=== PATIENT | female | born 1950 | race Caucasian/White ===

== ENCOUNTER → 2019-02-11 | Outpatient (CLI) | payer OTHER ==
[~2019-02-11] VITALS: Ht 157.5 cm; Wt 77.1 kg
[~2019-02-11] MED LIST: AMBIEN 10 MG TA10 MG PO; BIOTIN1000 MCG PO; CALCIUM500 MG PO; D3 DOTS2000 UNIT PO; MAGNESIUM250 M1 PO; PENNSAID112 GM TOP; PROBIOTIC1 EAC7 PO; SPIRONOLACTONE25 MG PO; SUPER THERAVIT1 EACH PO; TRAMADOL HCL50 MG PO
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
[2019-02-11 08:50] VITALS: BP 132/80
--- NOTE | 2019-02-11 09:11 | NUR ---
Pain Clinic Assessment: 1. History of Osteoarthritis: RIGHT KNEE History of Rheumatoid Arthritis: NONE 2. Height: 5 ft. 2 in. 157.5 cm. Weight: 170.0 lb. oz. 77.112 kg. Patient's BMI: 31.1 3. Vital Signs: BP: 132/80 Pulse: 70 Resp: 16 Temp: 02 Sat: 100 ECG Mon: 4. Pain Intensity: 6-AVG 5. Fall Risk: Dizziness: N Needs help standing or walking: N Fallen in the last 3 months: N Fall risk comments: 6. Patient on Blood Thinner: None 7. History of Hypertension: Y 8. Opioid Therapy greater than 6 weeks: Opiate Contract Signed: 9. Risk Assessment Tool Provided: LOW 10. Functional Assessment Tool: 11. Recreational Drug Use: Never Drug Type: Tobacco Use: Never Smoker Tobacco Type: Amount or Packs/day: How Many Years: Alcohol Use: Yes Frequency: Weekly Quant: 3
== END ==
LOC: PAIN 06:46
DX: M54.5 Low back pain (principal); M96.1 Postlaminectomy syndrome, not elsewhere classified

== ENCOUNTER → 2019-02-15 | Outpatient (CLI) | payer OTHER ==
[~2019-02-15] VITALS: Ht 157.5 cm; Wt 77.1 kg
--- NOTE | ~2019-02-15 | HPC ---
[address] [address] PAIN MANAGEMENT CONSULTATION Name: JUANPABLO FITCH Room #: REG [facility].#: [id number] Admission: 02/15/19 Attend Phys: Riley Schwartz MD Discharge: Date of : 50 Report #: [id number] THIS REPORT FOR: //name// CC: Heather Schwartz DATE OF SERVICE: 02/15/2019 PROCEDURE NOTE CHIEF COMPLAINT: Bilateral low back pain radiating into the L5-S1 distribution with radiculopathy. Post-laminectomy syndrome with fusion. The patient is here today for lumbar epidural injection using a midline approach. We discussed this at her initial consultation just 4 days ago. We have received authorization to go forward with injection. PROCEDURE: Epidural steroid injection L5-S1 under fluoroscopic guidance. DESCRIPTION OF PROCEDURE: After informed consent, she was taken to fluoroscopic suite, placed prone, skin prepped with ChloraPrep. Skin anesthetized over the L5-S1 epidural space. A 20-gauge Tuohy epidural needle was advanced in the epidural space just to the left of midline. A 1 mL of Omnipaque injected. There was some pain radiating into the buttocks during initial injection, but it was all on the left. I injected 0.25 mL of Omnipaque and an epidurogram was demonstrated with all medications spreading into the left lateral recess. I injected 2.5 mL of 0.5% lidocaine mixed with 40 mg triamcinolone. The needle was then withdrawn slightly and redirected to the right of midline through the same entry point. Good loss of resistance was obtained. A small amount of Omnipaque again elicited discomfort into the hip consistent with epidural spread. An epidurogram was seen with 0.25 mL of Omnipaque. I then injected additional 2.5 mL of 0.5% lidocaine mixed with 40 mg of triamcinolone. She tolerated the procedure well. There were no complications. She was taken to recovery room for observation and discharged. Pain score diminished by about 50% at her discharge. Followup visit planned in 1 month. By: [id number] Riley Schwartz MD /nt
[2019-02-15 08:30] VITALS: BP 125/79
== END | disposition home or self-care (01) ==
LOC: PAIN 04:35
DX: M54.16 Radiculopathy, lumbar region (principal); M96.1 Postlaminectomy syndrome, not elsewhere classified; G89.29 Other chronic pain; Z98.890 Other specified postprocedural states; Z79.899 Other long term (current) drug therapy; Z88.8 Allergy status to other drugs, medicaments and biological substances

== ENCOUNTER → 2019-07-12 | Outpatient (CLI) | payer OTHER ==
[~2019-07-12] VITALS: Ht 162.6 cm; Wt 82.1 kg
[2019-07-12 13:57] VITALS: BP 132/75
--- NOTE | 2019-07-12 14:13 | NUR ---
Pain Clinic Assessment: 1. History of Osteoarthritis: RIGHT KNEE History of Rheumatoid Arthritis: NONE 2. Height: 5 ft. 4 in. 162.6 cm. Weight: 181.0 lb. oz. 82.101 kg. Patient's BMI: 31.1 3. Vital Signs: BP: 132/75 Pulse: 78 Resp: 16 Temp: 02 Sat: 100 ECG Mon: 4. Pain Intensity: 3 5. Fall Risk: Dizziness: N Needs help standing or walking: N Fallen in the last 3 months: N Fall risk comments: 6. Patient on Blood Thinner: None 7. History of Hypertension: Y 8. Opioid Therapy greater than 6 weeks: N Opiate Contract Signed: 9. Risk Assessment Tool Provided: LOW 10. Functional Assessment Tool: 11. Recreational Drug Use: Never Drug Type: Tobacco Use: Never Smoker Tobacco Type: Amount or Packs/day: How Many Years: Alcohol Use: Yes Frequency: Weekly Quant: 3
--- NOTE | 2019-07-13 18:18 | HPC ---
[facility] [place] [address] PAIN MANAGEMENT CONSULTATION Name: JUANPABLO FITCH Room #: REG [facility].#: [id number] Admission: 07/12/19 Attend Phys: Riley Schwartz MD Discharge: Date of : 50 Report #: [id number] THIS REPORT FOR: cc: Heather Galloway MD,Heather Schwartz,Riley Patel MD ~ CC: Heather Schwartz DATE OF SERVICE: 07/12/2019 Followup visit for lumbar radiculopathy. The patient returns to pain clinic today for followup. She got about 6-7 weeks of pretty decent pain relief following her first epidural injection. Pain is now returning. She has had a previous lumbar fusion. She did well after her fusion up until recently, pain has been increasing in severity and seems to be worse on the left than the right. Pain is an aching pressure. Pain intensity is not high, but she is fairly stoic. She scores 2/10. Functional assessment score, however, is 46/70 suggesting a fair degree of uncontrolled pain affecting her day-to-day activities. PQRS REVIEW: Positive for osteoarthritis of the right knee. BMI is 31.1, blood pressure 132/75, heart rate 78, respirations 16, O2 sat 100, pain intensity 3/10. She is not a fall risk. No blood thinners. She is under treatment for hypertension. She denies use of regular opioids, but has some tramadol provided by primary care physician. She has completed an opioid risk tool and score is low. She denies use of tobacco, drinks alcohol socially on occasion in a social setting. IMPRESSION: Chronic intractable low back pain with radiculopathy, post-laminectomy fusion. Pain is on the left with radicular distribution. PROCEDURE: Left paramedian lumbar epidural steroid injection under fluoroscopic guidance. She was taken to fluoroscopic suite, placed prone, skin prepped with ChloraPrep. Skin anesthetized over L4-L5. A 20-gauge Tuohy epidural needle advanced in the epidural space under fluoroscopic guidance. There was no blood or CSF aspirated. A 1 mL of Omnipaque was injected. Good spread of dye observed along the left lateral recesses followed by 3 mL of 0.5% lidocaine mixed with 80 mg of triamcinolone. She tolerated the procedure well and was observed for 45 minutes and discharged. [address] [address] PAIN MANAGEMENT CONSULTATION Name: JUANPABLO FITCH Room #: REG [facility]#: [id number] Admission: 07/12/19 Attend Phys: Riley Schwartz MD Discharge: Date of : 50 Report #: [id number] Followup visit planned as needed. <ELECTRONICALLY SIGNED> By: Riley Schwartz MD 07/13/19 1818 [id number] [id number] Riley Schwartz MD /nt
== END | disposition home or self-care (01) ==
LOC: PAIN 06:57
DX: M54.16 Radiculopathy, lumbar region (principal); G89.29 Other chronic pain; M96.1 Postlaminectomy syndrome, not elsewhere classified; Z98.890 Other specified postprocedural states; Z79.899 Other long term (current) drug therapy; Z88.8 Allergy status to other drugs, medicaments and biological substances

== ENCOUNTER → 2019-11-04 | Outpatient (CLI) | payer OTHER ==
[~2019-11-04] VITALS: Ht 162.6 cm; Wt 80.8 kg
--- NOTE | ~2019-11-04 | HPC ---
[facility] [address] [address] PAIN MANAGEMENT CONSULTATION Name: JUANPABLO FITCH Room #: REG [facility] M.Roxie.#: [id number] Admission: 11/04/19 Attend Phys: Riley Schawrtz MD Discharge: Date of : 50 Report #: [id number] THIS REPORT FOR: cc: Heather Galloway MD, Melissa J. MD Morgan, Richard L. MD ~ CC: Heather Schwartz Followup visit for chronic low back pain with radiculopathy, post-laminectomy and fusion. The patient returns to the pain clinic today for repeat epidural injection. She has had 2 prior injections within the last 9 months, both providing relief measured in months. She has pain mostly below the level of her fusion that radiates into her hips and legs and is back again today. She has also pain that radiates above her scar. She probably has some movement as well in the vertebral level above her fusion. She would like another injection based upon her favorable response. She continues to try and remain active and does exercises. She has seen Dr. Travis, who suggested that she might need an extension of her fusion. This would extend the fusion I suspect down to S1, which would put a fair amount of pressure on the levels above. She is reluctant to proceed with surgery and is hopeful that we can control her pain with conservative measures. I reviewed her x-rays and she has a fusion of L3-L4 stabilizing spondylolisthesis at that level. PQRS: Positive for osteoarthritis, right knee, lumbar spondylosis ____ both wrists. Her BMI is 30.6. She tries to keep her weight down with diet and exercise. Blood pressure is 110/74, heart rate 72, respirations 16, O2 sat 100 with COVID mask on. Pain intensity today is a 7/10. She does not need help standing or walking and has not fallen. She denies use of blood thinners. Dr. Galloway provides her with medication to treat hypertension and she is currently well controlled. She denies any regular opioids. She has had taken tramadol in the past. She has completed an opioid risk tool and her score is 1-2. She denies use of tobacco, drinks alcohol socially on occasion. IMPRESSION: Chronic low back pain, post-laminectomy syndrome with radiculopathy. PROCEDURE: Epidural steroid injection L4-L5, right paramedian approach under fluoroscopic guidance. After informed consent, she was taken to fluoroscopic suite, placed prone, skin prepped with ChloraPrep. Skin anesthetized over L4-L5 to the right of midline. [address] [address] PAIN MANAGEMENT CONSULTATION Name: JUANPABLO FITCH Elaine Room #: REG [facility] Melonie.#: [id number] Admission: 11/04/19 Attend Phys: Riley Schwartz MD Discharge: Date of : 50 Report #: [id number] A 20-gauge Tuohy epidural needle advanced in the epidural space using loss of resistance technique. There was no blood, no CSF aspirated. A 1 mL of Omnipaque was injected. Good spread of dye observed into the epidural space followed by 3 mL of 0.5% lidocaine mixed with 80 mg of triamcinolone. She tolerated the procedure well and was observed for 45 minutes and discharged. Followup visit planned as needed. By: [id number] [id number] Riley Schwartz MD /nt
[2019-11-04 09:32] VITALS: BP 110/74
--- NOTE | 2019-11-04 09:53 | NUR ---
Pain Clinic Assessment: 1. History of Osteoarthritis: RIGHT KNEE BACK BOTH WRIST History of Rheumatoid Arthritis: N/A 2. Height: 5 ft. 4 in. 162.6 cm. Weight: 178.2 lb. oz. 80.831 kg. Patient's BMI: 30.6 3. Vital Signs: BP: 110/74 Pulse: 72 Resp: 16 Temp: 02 Sat: 100 ECG Mon: 4. Pain Intensity: 7 5. Fall Risk: Dizziness: N Needs help standing or walking: N Fallen in the last 3 months: N Fall risk comments: 6. Patient on Blood Thinner: None 7. History of Hypertension: Y 8. Opioid Therapy greater than 6 weeks: N Opiate Contract Signed: 9. Risk Assessment Tool Provided: LOW RISK 2/3 10. Functional Assessment Tool: 11. Recreational Drug Use: Never Drug Type: Tobacco Use: Never Smoker Tobacco Type: Amount or Packs/day: How Many Years: Alcohol Use: Yes Frequency: Weekly Quant: 1-2
== END ==
LOC: PAIN 06:52
PROVIDERS: ATTEND Anesthesiology Pain Medicine
DX: M54.5 Low back pain (principal); M96.1 Postlaminectomy syndrome, not elsewhere classified; G89.29 Other chronic pain; Z79.899 Other long term (current) drug therapy; Z98.890 Other specified postprocedural states

== ENCOUNTER → 2020-03-27 | Outpatient (CLI) | payer OTHER ==
[~2020-03-27] VITALS: Ht 162.6 cm; Wt 83.9 kg
[~2020-03-27] MED LIST changes: +CHROMIUM PICO400 MCG PO
[2020-03-27 12:31] VITALS: BP 121/70
--- NOTE | 2020-03-27 12:35 | NUR ---
Pain Clinic Assessment: 1. History of Osteoarthritis: RIGHT KNEE BACK BOTH WRIST History of Rheumatoid Arthritis: N/A 2. Height: 5 ft. 4 in. 162.6 cm. Weight: 185.0 lb. oz. 83.916 kg. Patient's BMI: 31.7 3. Vital Signs: BP: 121/70 Pulse: 68 Resp: 16 Temp: 02 Sat: 93 ECG Mon: 4. Pain Intensity: 7 5. Fall Risk: Dizziness: N Needs help standing or walking: N Fallen in the last 3 months: N Fall risk comments: 6. Patient on Blood Thinner: None 7. History of Hypertension: Y 8. Opioid Therapy greater than 6 weeks: N Opiate Contract Signed: 9. Risk Assessment Tool Provided: LOW RISK 2/3 10. Functional Assessment Tool: 11. Recreational Drug Use: Never Drug Type: Tobacco Use: Never Smoker Tobacco Type: Amount or Packs/day: How Many Years: Alcohol Use: Yes Frequency: Weekly Quant: 3-4
== END | disposition home or self-care (01) ==
LOC: PAIN 02-17 13:36
PROVIDERS: ATTEND Anesthesiology Pain Medicine
DX: M54.16 Radiculopathy, lumbar region (principal); M96.1 Postlaminectomy syndrome, not elsewhere classified; G89.29 Other chronic pain; I10 Essential (primary) hypertension; M19.90 Unspecified osteoarthritis, unspecified site; Z98.890 Other specified postprocedural states; Z79.899 Other long term (current) drug therapy; Z88.8 Allergy status to other drugs, medicaments and biological substances

== ENCOUNTER → 2020-08-24 | Outpatient (CLI) | payer OTHER ==
[~2020-08-24] VITALS: Ht 162.6 cm; Wt 83.9 kg
[2020-08-24 11:03] VITALS: BP 113/73
--- NOTE | 2020-08-24 11:17 | NUR ---
Pain Clinic Assessment: 1. History of Osteoarthritis: RIGHT KNEE BACK BOTH WRIST History of Rheumatoid Arthritis: N/A 2. Height: 5 ft. 4 in. 162.6 cm. Weight: 185.0 lb. oz. 83.916 kg. Patient's BMI: 31.7 3. Vital Signs: BP: 113/73 Pulse: 64 Resp: 16 Temp: 02 Sat: 100 ECG Mon: 4. Pain Intensity: 7 TO 10 5. Fall Risk: Dizziness: N Needs help standing or walking: N Fallen in the last 3 months: N Fall risk comments: 6. Patient on Blood Thinner: None 7. History of Hypertension: Y 8. Opioid Therapy greater than 6 weeks: N Opiate Contract Signed: 9. Risk Assessment Tool Provided: LOW RISK 2/3 10. Functional Assessment Tool: 11. Recreational Drug Use: Never Drug Type: Tobacco Use: Never Smoker Tobacco Type: Amount or Packs/day: How Many Years: Alcohol Use: Yes Frequency: Weekly Quant: 2 TO 3
== END ==
LOC: PAIN 08:32
PROVIDERS: ATTEND Anesthesiology Pain Medicine
DX: M96.1 Postlaminectomy syndrome, not elsewhere classified (principal); M54.16 Radiculopathy, lumbar region; I10 Essential (primary) hypertension; Z72.89 Other problems related to lifestyle; Z79.899 Other long term (current) drug therapy; Z79.891 Long term (current) use of opiate analgesic; Z88.8 Allergy status to other drugs, medicaments and biological substances

== ENCOUNTER → 2020-09-18 | Outpatient (CLI) | payer OTHER ==
[~2020-09-18] VITALS: Ht 162.6 cm; Wt 81.3 kg
[2020-09-18 12:32] VITALS: BP 121/62
--- NOTE | 2020-09-18 12:42 | NUR ---
Pain Clinic Assessment: 1. History of Osteoarthritis: RIGHT KNEE BACK BOTH WRIST History of Rheumatoid Arthritis: N/A 2. Height: 5 ft. 4 in. 162.6 cm. Weight: 179.2 lb. oz. 81.285 kg. Patient's BMI: 30.7 3. Vital Signs: BP: 121/62 Pulse: 84 Resp: 16 Temp: 02 Sat: 97 ECG Mon: 4. Pain Intensity: 6 5. Fall Risk: Dizziness: N Needs help standing or walking: N Fallen in the last 3 months: N Fall risk comments: 6. Patient on Blood Thinner: None 7. History of Hypertension: Y 8. Opioid Therapy greater than 6 weeks: N Opiate Contract Signed: 9. Risk Assessment Tool Provided: LOW RISK 2/3 10. Functional Assessment Tool: 11. Recreational Drug Use: Never Drug Type: Tobacco Use: Never Smoker Tobacco Type: Amount or Packs/day: How Many Years: Alcohol Use: Yes Frequency: Weekly Quant: 1
== END | disposition home or self-care (01) ==
LOC: PAIN 10:38
PROVIDERS: ATTEND Anesthesiology Pain Medicine
DX: M54.16 Radiculopathy, lumbar region (principal); G89.29 Other chronic pain; I10 Essential (primary) hypertension; M19.90 Unspecified osteoarthritis, unspecified site; Z98.890 Other specified postprocedural states; Z79.899 Other long term (current) drug therapy

== ENCOUNTER → 2021-01-01 | Outpatient (CLI) | payer OTHER ==
[~2021-01-01] VITALS: Ht 157.5 cm; Wt 84.0 kg
[~2021-01-01] MED LIST changes: +[UNRECOGNIZED DRUG - OTHER] PO
[2021-01-01 12:44] VITALS: BP 128/64
--- NOTE | 2021-01-01 12:49 | NUR ---
Pain Clinic Assessment: 1. History of Osteoarthritis: RIGHT KNEE BACK BOTH WRIST History of Rheumatoid Arthritis: N/A 2. Height: 5 ft. 2 in. 157.5 cm. Weight: 185.2 lb. oz. 84.006 kg. Patient's BMI: 33.9 3. Vital Signs: BP: 128/64 Pulse: 76 Resp: 16 Temp: 02 Sat: 100 ECG Mon: 4. Pain Intensity: 5 5. Fall Risk: Dizziness: N Needs help standing or walking: N Fallen in the last 3 months: N Fall risk comments: 6. Patient on Blood Thinner: None 7. History of Hypertension: Y 8. Opioid Therapy greater than 6 weeks: N Opiate Contract Signed: 9. Risk Assessment Tool Provided: LOW RISK 2/3 10. Functional Assessment Tool: 11. Recreational Drug Use: Never Drug Type: Tobacco Use: Never Smoker Tobacco Type: Amount or Packs/day: How Many Years: Alcohol Use: Yes Frequency: Weekly Quant: 2 TO 3
== END | disposition home or self-care (01) ==
LOC: PAIN 12:12
PROVIDERS: ATTEND Anesthesiology Pain Medicine
DX: M47.26 Other spondylosis with radiculopathy, lumbar region (principal); M54.59 Other low back pain; G89.29 Other chronic pain; I10 Essential (primary) hypertension; M19.90 Unspecified osteoarthritis, unspecified site; Z98.890 Other specified postprocedural states; Z79.899 Other long term (current) drug therapy; Z88.8 Allergy status to other drugs, medicaments and biological substances

== ENCOUNTER → 2021-04-05 | Outpatient (CLI) | payer OTHER ==
[~2021-04-05] VITALS: Ht 157.5 cm; Wt 85.5 kg
[2021-04-05 09:19] VITALS: BP 120/77
--- NOTE | 2021-04-05 09:28 | NUR ---
Pain Clinic Assessment: 1. History of Osteoarthritis: RIGHT KNEE BACK BOTH WRIST History of Rheumatoid Arthritis: N/A 2. Height: 5 ft. 2 in. 157.5 cm. Weight: 188.4 lb. oz. 85.458 kg. Patient's BMI: 34.5 3. Vital Signs: BP: 120/77 Pulse: 73 Resp: 20 Temp: 02 Sat: 94 ECG Mon: 4. Pain Intensity: 5 5. Fall Risk: Dizziness: N Needs help standing or walking: N Fallen in the last 3 months: N Fall risk comments: 6. Patient on Blood Thinner: None 7. History of Hypertension: Y 8. Opioid Therapy greater than 6 weeks: N Opiate Contract Signed: 9. Risk Assessment Tool Provided: LOW RISK 2/3 10. Functional Assessment Tool: 11. Recreational Drug Use: Never Drug Type: Tobacco Use: Never Smoker Tobacco Type: Amount or Packs/day: How Many Years: Alcohol Use: Yes Frequency: Quant:
== END | disposition home or self-care (01) ==
LOC: PAIN 09:07
PROVIDERS: ATTEND Anesthesiology Pain Medicine
DX: M54.16 Radiculopathy, lumbar region (principal); G89.29 Other chronic pain; M25.572 Pain in left ankle and joints of left foot; I10 Essential (primary) hypertension; M19.90 Unspecified osteoarthritis, unspecified site; Z98.890 Other specified postprocedural states; Z79.899 Other long term (current) drug therapy; Z88.8 Allergy status to other drugs, medicaments and biological substances